=== PATIENT | male | born 1950 | race Two or more races ===

== ENCOUNTER 2019-08-13 05:41 | Day surgery (SDC) | payer OTHER ==
[~2019-08-13 05:41] MED LIST: OMEPRAZ PO; SIMVASTA PO; TENORMIN25 MG PO
[2019-08-13] MEDS ORDERED: SURFAK240 M1 PO (09:52)
[2019-08-13] MEDS ORDERED: ULTRACET PO (09:53)
[2019-08-13] MEDS ORDERED: KEFLEX500 MG PO (09:54)
[2019-08-13] MEDS ORDERED: PROTONIX40 MG PO (09:55)
== END 2019-08-13 19:00 | disposition home or self-care (01) ==
LOC: CIR.AMB 05:41 → ADM 07:45 → CIR.AMB 07:45
PROVIDERS: ATTEND Surgery
DX: K40.90 Unilateral inguinal hernia, without obstruction or gangrene, not specified as recurrent (principal)